=== PATIENT | female | born 1965 | race Caucasian/White ===

== ENCOUNTER 2024-01-08 08:02 | Emergency (ER) | payer OTHER ==
[~2024-01-08] VITALS: Ht 154.9 cm; Wt 72.7 kg
[2024-01-08 08:23] VITALS: BP 164/95; PULSE 75; RESP 18; TEMP 98.2; O2SAT 95
[2024-01-08] MEDS: HYDROcodone-ACET 5/325MG TAB PO ONE (08:34)
== END 2024-01-08 09:23 | disposition left against medical advice (07) ==
LOC: EDBD 08:02 → ER 08:02
DX: F45.21 Hypochondriasis (principal); I10 Essential (primary) hypertension; F17.210 Nicotine dependence, cigarettes, uncomplicated; Z59.00 Homelessness unspecified; Z53.29 Procedure and treatment not carried out because of patient's decision for other reasons
CPT/HCPCS: 70140